=== PATIENT | male | born 1975 | race African-American/Black ===

== ENCOUNTER 2020-12-13 08:42 | Outpatient (REF) | payer MEDICARE, MEDICAID, SELFPAY ==
--- NOTE | ~2020-12-13 | XR_ITS ---
EXAMINATION: LEFT ELBOW, LEFT SHOULDER AND CERVICAL SPINE. CLINICAL INFORMATION: Pain. COMPARISON: None TECHNIQUE: 3 views left elbow. 4 views left shoulder. 5 views cervical spine. FINDINGS: LEFT ELBOW: There is no visible acute fracture, dislocation or subluxation seen. The soft tissues are normal. LEFT SHOULDER: There is mild reduction of the glenohumeral joint space and left AC joint space. No bony erosive changes seen. There is inferior acromial spurring. The soft tissues are normal. CERVICAL SPINE: There is mild straightening of cervical lordosis. Mild loss of C6-C7 disc height is noted. Rest the disc heights are normal. No visible acute fracture, dislocation or lytic process seen. There is mild ventral spondylosis. Mild bilateral narrowing of neural foramina from uncovertebral hypertrophic changes bilaterally at C6-C7 disc levels is noted slightly greater on the left. XR/XR cervical spine 4V IMPRESSION: Unremarkable left elbow exam. Mild degenerative spurring inferior left AC joint and inferior acromion. Mild degenerative changes C6-C7 disc level with mild ventral spondylosis at C4-C5, C5-C6 and C6-C7 disc levels.
--- NOTE | ~2020-12-13 | XR_ITS ---
EXAMINATION: LEFT ELBOW, LEFT SHOULDER AND CERVICAL SPINE. CLINICAL INFORMATION: Pain. COMPARISON: None TECHNIQUE: 3 views left elbow. 4 views left shoulder. 5 views cervical spine. FINDINGS: LEFT ELBOW: There is no visible acute fracture, dislocation or subluxation seen. The soft tissues are normal. LEFT SHOULDER: There is mild reduction of the glenohumeral joint space and left AC joint space. No bony erosive changes seen. There is inferior acromial spurring. The soft tissues are normal. CERVICAL SPINE: There is mild straightening of cervical lordosis. Mild loss of C6-C7 disc height is noted. Rest the disc heights are normal. No visible acute fracture, dislocation or lytic process seen. There is mild ventral spondylosis. Mild bilateral narrowing of neural foramina from uncovertebral hypertrophic changes bilaterally at C6-C7 disc levels is noted slightly greater on the left. XR/XR elbow LT 2V IMPRESSION: Unremarkable left elbow exam. Mild degenerative spurring inferior left AC joint and inferior acromion. Mild degenerative changes C6-C7 disc level with mild ventral spondylosis at C4-C5, C5-C6 and C6-C7 disc levels.
--- NOTE | ~2020-12-13 | XR_ITS ---
EXAMINATION: LEFT ELBOW, LEFT SHOULDER AND CERVICAL SPINE. CLINICAL INFORMATION: Pain. COMPARISON: None TECHNIQUE: 3 views left elbow. 4 views left shoulder. 5 views cervical spine. FINDINGS: LEFT ELBOW: There is no visible acute fracture, dislocation or subluxation seen. The soft tissues are normal. LEFT SHOULDER: There is mild reduction of the glenohumeral joint space and left AC joint space. No bony erosive changes seen. There is inferior acromial spurring. The soft tissues are normal. CERVICAL SPINE: There is mild straightening of cervical lordosis. Mild loss of C6-C7 disc height is noted. Rest the disc heights are normal. No visible acute fracture, dislocation or lytic process seen. There is mild ventral spondylosis. Mild bilateral narrowing of neural foramina from uncovertebral hypertrophic changes bilaterally at C6-C7 disc levels is noted slightly greater on the left. XR/XR shoulder LT min 2V IMPRESSION: Unremarkable left elbow exam. Mild degenerative spurring inferior left AC joint and inferior acromion. Mild degenerative changes C6-C7 disc level with mild ventral spondylosis at C4-C5, C5-C6 and C6-C7 disc levels.
== END 2020-12-13 08:43 | disposition home or self-care (01) ==
LOC: HO.XRAY 08:42
PROVIDERS: PCP Internal Medicine; Visit Provider Internal Medicine
DX: M54.12 Radiculopathy, cervical region (principal); M79.602 Pain in left arm
CPT/HCPCS: 72050; 73030; 73070

== ENCOUNTER 2023-09-18 09:44 | Outpatient (REF) | payer MEDICARE, SELFPAY ==
[2023-09-18 13:04] LABS: Alanine Aminotransferase 19 U/L (0-40); Albumin Level 4.1 g/dL (3.5-5.0); Alkaline Phosphatase 77 U/L (39-117); Anion Gap 12 (12-20); Aspartate Amino Transferase 17 U/L (5-37); Bilirubin Total 0.4 mg/dL (0.0-1.0); Blood Urea Nitrogen 15 mg/dL (9-16); Calcium 9.7 mg/dL (8.4-10.2); Carbon Dioxide 28 mmol/L (22-29); Chloride 108 mmol/L (96-108); Estimated Glomerular Filt Rate 58; Glucose Random 131 mg/dL (60-115); Potassium 4.7 mmol/L (3.3-5.1); Sodium 143 mmol/L (135-145); Total Protein 8.6 g/dL (6.5-8.0)
== END 2023-09-18 09:45 | disposition home or self-care (01) ==
LOC: HO.HHCL 09:44
PROVIDERS: Visit Provider Internal Medicine
DX: E11.65 Type 2 diabetes mellitus with hyperglycemia (principal); E78.00 Pure hypercholesterolemia, unspecified; B35.1 Tinea unguium
CPT/HCPCS: 36415; 80053; 80061; 80076; 82248; 82306

== ENCOUNTER 2023-12-11 09:49 | Outpatient (AMB) | payer MEDICARE, SELFPAY ==
--- NOTE | 2023-12-11 10:06 | A.OFFVIS_ITS ---
Intake Vital Signs 12/11/23 10:10 Height 5 ft 11 in Weight 288 lb BMI 40.2 BP 140/71 H Blood Pressure Location Lt brachial Position Sitting Pulse 67 Intake Visit Reasons: Colonoscopy screening Intake Note: Patient new consult for 1st pre colonoscopy screening. Patient cc: blood stool on and off/hemorrhoids ?? and acid reflex, patient denies any other GI issues. 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 Occasional acid reflux-at night- he snacks- tums once and a while- His father 2 years ago from GI issue- he is unsure - but very concerned - about his own health Bowels are normal- Appetite is good No cardiac or respiratory Diabetes sugars fluctuate No nausea, vomiting hematemesis, hematochezia fever chills PFSH Family History Father Intestinal angina Mother Breast CA Social History (Updated 12/11/23 @ 10:24 by Christine Farris PA-C) Household Members: Family Alcohol intake: current Alcohol intake frequency: holidays/special occasions only Patient Tobacco Use Status: Never used Tobacco Current occupational status: unemployed Review of Systems Const All systems reviewed & are unremarkable except as noted in HPI and below Card Denies chest pain and Denies dyspnea Resp Denies dyspnea GI Reports hematochezia and Reports heartburn Physical Exam Vital Signs: Last Vital Signs Pulse 67 12/11/23 10:10 BP 140/71 H 12/11/23 10:10 BMI result Body Mass Index 40.2 Const General: cooperative, healthy appearing and comfortable Orientation/consciousness: patient oriented x3 Limitations: language barrier Resp Effort & Inspection: normal respiratory effort and able to speak in complete sen tences Auscultation: clear to auscultation bilaterally, no rales, no rhonchi and no wheezes Cardio Rate: regular rate Rhythm: regular rhythm Heart sounds: S1 normal heart sound present and S2 normal heart sound present GI Palpation (GI): Soft to palpation and nontender Auscultation: normal bowel sounds Neuro General: patient oriented x3 Extrem General: Yes full ROM Psych Mental Status: mental status grossly normal Speech and movement: Clear speech present Affect: Anxious affect present Attitude: cooperative Thought process: Normal thought process present Thought content: Normal thought content present Assessment & Plan Assessment & Plan (1) Rectal bleeding: Comment: intermit- BRBPR- wiping- MLC hemorrhoids Discussed procedure, rare risks, need for escorted due to anesthesia Code(s): K62.5 - Hemorrhage of anus and rectum Plan: Avoid straining, maintain high-fiber diet (2) Acid reflux: Comment: r/o PUD-non ulcer dyspepsia- other endoscopic Code(s): K21.9 - Gastro-esophageal reflux disease without esophagitis Plan: ppi Reflux precautions EGD (3) Diabetes: Code(s): E11.9 - Type 2 diabetes mellitus without complications Plan: Omit metformin day before procedures no diabetes medication morning of procedure Plan EGD/ colon MG prep omit metformin day before as well as day of procedure Orders: Orders EGD/[place] Combo - GI Use Only 12/11/23 E11.9 - Type 2 diabetes mellitus without complications, K21.9 - Gastro-esophageal reflux disease without esophagitis, K62.5 - Hemorrhage of anus and rectum Medications: New polyethylene glycol 3350 (Miralax) Take as directed by mouth the day before your procedure. 238 grams PO ONCE PRN 238 grams 0RF laxative effect 1 day bisacodyl (Dulcolax (bisacodyl)) Day before procedure @ 12 noon Take 4 tablets by mouth followed by large glass of water 20 mg (4 x 5 mg) PO ONCE PRN 4 tabs 0RF colonoscopy prep 1 day Z12.11 - Encounter for screening for malignant neoplasm of colon omeprazole 20 mg PO DAILY 30 caps 5RF 30 days Patient Instructions: EGD/ colon MG prep, reviewed literature omit metformin day before as well as day of procedure Maintain high-fiber diet Avoid straining with hemorrhoid Reflux precautions Omeprazole 20 mg daily Coding Level of Care Code New Pt Level 3 (51017) Diagnoses Rectal bleeding K62.5 Acid reflux K21.9 Diabetes E11.9 Time Spent (min) 30 Comment [id number]
[2023-12-11 10:10] VITALS: BP 140/71; PULSE 67; BMI 40.2
== END 2023-12-11 11:05 | disposition home or self-care (01) ==
PROVIDERS: PCP Internal Medicine; Visit Provider Physician Assistant
DX: K62.5 Hemorrhage of anus and rectum (principal); K21.9 Gastro-esophageal reflux disease without esophagitis; E11.9 Type 2 diabetes mellitus without complications
CPT/HCPCS: 99203

== ENCOUNTER → 2023-12-11 09:49 | Outpatient (BNVA) | payer MEDICARE, SELFPAY | PROVIDERS: PCP Internal Medicine; Visit Provider Physician Assistant | DX: K62.5 Hemorrhage of anus and rectum (principal); K21.9 Gastro-esophageal reflux disease without esophagitis; E11.9 Type 2 diabetes mellitus without complications; Z79.84 Long term (current) use of oral hypoglycemic drugs | CPT/HCPCS: 99202 ==

== ENCOUNTER 2024-01-22 09:40 | Outpatient (REF) | payer MEDICARE, SELFPAY ==
[2024-01-22 12:15] LABS: Alanine Aminotransferase 23 U/L (0-40); Albumin Level 3.9 g/dL (3.5-5.0); Alkaline Phosphatase 88 U/L (39-117); Aspartate Amino Transferase 15 U/L (5-37); Bilirubin Direct 0.1 mg/dL (0.0-0.5); Bilirubin Total 0.3 mg/dL (0.0-1.0); Cholesterol 141 mg/dL (<200); HDL Cholesterol 33 mg/dL (>40); LDL Cholesterol Calculated 86 mg/dL (<100); Total Protein 8.3 g/dL (6.5-8.0); Triglycerides 114 mg/dL (<150)
[2024-01-22 12:35] LABS: Reflex LDLD? No
== END 2024-01-22 09:41 | disposition home or self-care (01) ==
LOC: HO.HHCL 09:40
PROVIDERS: Visit Provider Internal Medicine
DX: E78.2 Mixed hyperlipidemia (principal)
CPT/HCPCS: 36415; 80061; 80076

== ENCOUNTER 2024-04-08 08:49 | Day surgery (SDC) | payer MEDICARE, SELFPAY ==
[2024-04-06 12:43] VITALS: BMI 40.2
[2024-04-08 09:11] VITALS: BMI 40.9
--- NOTE | 2024-04-08 09:26 | P.CONAN_ITS ---
[facility] Active Problems Active Problems: All Active Problems Diabetes (Acute) Acid reflux (Acute) Rectal bleeding (Acute) Past Medical History Medical History Hemorrhoids GERD (gastroesophageal reflux disease) Diabetes Family History Family History Father Intestinal angina Mother Breast CA Surgical History Surgical History Surgical history unknown History of Problems with Anesthesia: No Social History Social History Household Members: Family Alcohol intake: current Alcohol intake frequency: holidays/special occasions only Patient Tobacco Use Status: Never used Tobacco Use of substances other than those prescribed or required for medical reasons: No Are you DNR?: No Advance Directives: No Advance Directives Information Provided: Yes Advance Directives on File: No Current occupational status: unemployed Meds Allergies Allergy/AdvReac Type Severity Reaction Status Date / Time aspirin Allergy Severe Swelling Verified 12/11/23 10:05 Home Medications ?Medication ?Instructions ?Recorded ?Confirmed ?Last Taken ?Type atorvastatin 10 mg tablet 10 mg PO DAILY 12/11/23 04/06/24 Unknown History metformin 850 mg tablet 850 mg PO DAILY 12/11/23 04/06/24 Unknown History Exam Height,Weight and Vital Signs: Height 5 ft 11 in Weight 132.903 kg Airway Mallampati Class: IV TM Dist: >3cm Neck ROM: Full Loose/Missing/Broken Teeth: Yes and Lower Heart: RRR Lungs: CTA Assessment and Plan Assessment Anesthesia Assessment: Anesthesia Plan Discussed Final Anesthetic Review History of Problems with Anesthesia: No NPO: Yes ASA Class: III Final Preanesthetic Review: Meds/Allgs Chart Reviewed, Consent Obtained/Reviewed and Anes Risks/Benef Reviewed Patient Risk: Intermediate Procedure Risk: Intermediate Anesthetic Plan Anesthetic Plan: MAC: Disposition: Standard PACU
[2024-04-08 09:30] VITALS: BP 165/94; PULSE 81; RESP 18; TEMP 36.7; O2SAT 95
[2024-04-08 09:33] LABS: Glucose, Whole Blood 128 mg/dL (60-115)
[2024-04-08] MEDS: Lactated Ringers 1,000 ML 100 ML IVCONT (09:39)
--- NOTE | 2024-04-08 09:39 | MHC.SHP ---
Pre-Procedural Eval Section A - 24 Hr Update-Section A only Date of Service: 04/08/24 Section B - Complete if H&P > 30 days Chief Complaint: rectal bleed,gerd, Relevant Family History (Specify if Yes): No Relevant Social History: None Present Medications: see Short Stay Collaborative assessment Medical History: Significant History (DM, high chol ) History of Previous Operations: No relevant previous surgery Allergies: Allergies Allergy/AdvReac Type Severity Reaction Status Date / Time aspirin Allergy Severe Swelling Verified 12/11/23 10:05 Review of Systems Sugical H&P ROS: Negative: Constitution, Cardiovascular, Respiratory, Neurological, Psychiatric, Hem-Onc, Allergic/Immunologic, Gastrointestinal, Genitourinary, Musculoskeletal, Integumentary, Endocrine and Eyes/Ears/Nose/Throat Exam Surgical H&P Exam: Normal: HEENT, Normal: Heart, Normal: Lungs, Normal: Extremities, Normal: Abdomen, Normal: Skin and Normal: Neurological Plan Diagnosis/Plan: Unchanged I have reviewed the history and physical and performed a pertinent physical examination on my patient. No changes have occurred unless specified. Time Spent With Patient Time: Total time managing care of this patient today ____ minutes.
--- NOTE | 2024-04-08 09:40 | P.OPN-COLO_ITS ---
Colonoscopy Operative Note Operative Note Date of Service: 04/08/24 Narrative: Operative Information Procedure Description: EGD, Colonoscopy Indication: GERD, rectal bleeding Anesthesia: MAC FLEXIBLE TRANSORAL UPPER GASTROINTESTINAL ENDOSCOPY AND COLONOSCOPY PROCEDURE NOTE UPPER ENDOSCOPY Consent: Indications for the procedure and potential complications of bleeding, perforation, reaction to medications and missed diagnosis were discussed with the patient and informed consent was obtained. Instrument: Olympus GIF H 190 J mid size upper endoscope Monitoring: Vital signs and clinical assessment, continuous EKG monitoring, Pulse oximetry, Carbon Dioxide monitoring and blood pressure monitoring were done throughout the procedure. Procedure: The patient was placed in the left lateral decubitis position and pre-procedure medications were administered and a bite block was placed. The endoscope was inserted into the mouth and advanced under direct vision to the third part of duodenum. A careful inspection was made as the upper endoscope was withdrawn including a retroflexed examination of the proximal stomach; Findings and interventions are described below. Findings: Larynx:normal Esophagus: GE junction at 36 cm, diaphragm hiatus at 39 cm, consistent with 3 cm sliding hiatal hernia with schatzki ring and erythema and edema at GEJ consistent with esophagitis, bx taken from GEJ, distal and proximal esophagus Stomach: mild erythema. Biopsies were obtained. Grade 2 flap valve on retroflexed examination of the cardia. Duodenum: Normal bulb and descending duodenum, Intervention: Biopsies as noted above, COLONOSCOPY Instrument: Olympus variable stiffness ADULT scope 190L Colonoscopy Monitoring: Vital signs and clinical assessment, continuous EKG monitoring, Pulse oximetry, Carbon Dioxide monitoring and blood pressure monitoring were done throughout the procedure. Colon withdrawal time was 10 minutes. Procedure: The patient was placed in the left lateral decubitis position and pre-procedure medications were administered. After a digital rectal examination of the ano-rectum, the video colonoscope was inserted into the rectum and advanced through the colon to the cecum/TI. The colonoscope was slowly withdrawn in a retrograde panoramic fashion and the colon mucosa was carefully examined including a retroflexed view of the rectum. Findings and interventions are described below. Procedure Difficulty:moderate Findings: Terminal Ileum-normal Cecum:normal right sided retroflexion- normal Ascending Colon: normal Transverse Colon -normal Descending Colon:normal Sigmoid Colon: normal Rectum: Retroflexion with small internal hemorrhoids, grade I Anorectum - normal Colon preparation: [place] Bowel Preparation Scale Right colon; 3 Transverse colon: 2 Left colon; 2 (0 = Unprepared colon segment with mucosa not seen due to solid stool that cannot be cleared. 1 = Portion of mucosa of the colon segment seen, but other areas of the colon segment not well seen due to staining, residual stool and/or opaque liquid. 2 = Minor amount of residual staining, small fragments of stool and/or opaque liquid, but mucosa of colon segment seen well. 3 = Entire mucosa of colon segment seen well with no residual staining, small fragments of stool or opaque liquid) Impression and Post Procedure Diagnosis: Endoscopy Findings: esophagitis hiatal hernia gastritis schatzki ring Colonoscopy Findings: internal hemorrhoids Plan: Await Pathology results Repeat Colonoscopy in 10 years or earlier if clinically indicated High fiber diet leaflet avoid straining at stool, epsom salts and sitz bath, anusol supps or cream check ppi compliance consider increasing dose Above findings were reviewed with the patient and relevant handouts were provided if indicated.
[2024-04-08 10:20] VITALS: BP 104/64; PULSE 86; RESP 18; TEMP 36.4; O2SAT 94
[2024-04-08 10:35] VITALS: BP 134/79; PULSE 85; RESP 18; TEMP 36.4; O2SAT 94
== END 2024-04-08 11:32 | disposition home or self-care (01) ==
PROVIDERS: PCP Internal Medicine; Visit Provider Internal Medicine Gastroenterology
PROC: (CPT 45378; principal; 2024-04-08 11:40)
DX: K62.5 Hemorrhage of anus and rectum (principal); K64.0 First degree hemorrhoids; K21.9 Gastro-esophageal reflux disease without esophagitis; K29.60 Other gastritis without bleeding; B96.81 Helicobacter pylori [H. pylori] as the cause of diseases classified elsewhere; K22.2 Esophageal obstruction; K44.9 Diaphragmatic hernia without obstruction or gangrene; K20.90 Esophagitis, unspecified without bleeding; E11.9 Type 2 diabetes mellitus without complications; Z79.84 Long term (current) use of oral hypoglycemic drugs; Z79.899 Other long term (current) drug therapy; Z88.8 Allergy status to other drugs, medicaments and biological substances; Z56.0 Unemployment, unspecified
CPT/HCPCS: 45378; 43239; 82947; 88305; 88313; 88342; J2704

== ENCOUNTER → 2024-04-08 08:49 | Outpatient (BNV) | payer MEDICARE, SELFPAY | PROVIDERS: PCP Internal Medicine; Visit Provider Internal Medicine Gastroenterology | DX: K21.00 Gastro-esophageal reflux disease with esophagitis, without bleeding (principal); K22.2 Esophageal obstruction; K29.70 Gastritis, unspecified, without bleeding; K62.5 Hemorrhage of anus and rectum; K64.0 First degree hemorrhoids | CPT/HCPCS: 43239; 45378 ==

== ENCOUNTER 2024-07-16 09:46 | Outpatient (AMB) | payer MEDICARE, SELFPAY ==
--- NOTE | 2024-07-16 10:01 | AM.OFFVISNUR ---
Intake Visit Reasons: H-pylori / re-check Intake Note: Patient presents for collection of H Pylori breath test. Patient has been fasting for 1 hour (nothing to eat, drink, no chewing gum or smoking) has not taken any antacid medication for at least 2 weeks and has no allergies to artificial sweeteners.?? Allergies aspirin Allergy (Severe, Verified 07/16/24 10:09) Swelling Assessment & Plan Assessment & Plan (1) Acid reflux: Comment: r/o PUD-non ulcer dyspepsia- other endoscopic Code(s): K21.9 - Gastro-esophageal reflux disease without esophagitis Category: Medical (2) Rectal bleeding: Comment: intermit- BRBPR- wiping- MLC hemorrhoids Discussed procedure, rare risks, need for escorted due to anesthesia Code(s): K62.5 - Hemorrhage of anus and rectum Category: Medical Plan Patient presents for collection of H Pylori breath test. Patient has been fasting for 1 hour (nothing to eat, drink, no chewing gum or smoking) has not taken any antacid medication for at least 2 weeks and has no allergies to artificial sweeteners.???This test checks for an overgrowth of bacteria in your stomach. We all have bacteria but some may have more than others. It is treatable. if the test comes back negative there is nothing else to do. If the test result is positive we will treat you with 2 antibiotics and a medication to decrease the acid in your stomach (PPI) for 2 weeks. Two weeks after you have completed the treatment we will retest you to make sure the overgrowth has resolved. Medications: Discontinued amoxicillin Discontinued Reason: Patient Completed Course 1,000 mg (2 x 500 mg) PO BID 2 weeks 56 caps 0RF Patient Instructions: Process for specimen collection and reason for testing was explained to the patient. Specimen collection. Patient instructed to take a deep breath and then exhale into the blue bag, filling it up as much as possible. Patient instructed to drink a mixture of water and the artificial sweetener with a straw. A 15 minute wait period was observed. Patient instructed to take a deep breath and then exhale into the pink bag, filling it up as much as possible.??
== END 2024-07-16 10:13 | disposition home or self-care (01) ==
LOC: HO.HGI 09:47
PROVIDERS: PCP Internal Medicine; Visit Provider Internal Medicine Gastroenterology
DX: K21.9 Gastro-esophageal reflux disease without esophagitis (principal); K62.5 Hemorrhage of anus and rectum

== ENCOUNTER 2024-07-16 09:46 | Outpatient (REF) | payer MEDICARE, SELFPAY ==
[2024-07-17 15:10] LABS: H Pylori Breath Test Negative (Negative)
== END 2024-07-16 09:47 | disposition home or self-care (01) ==
LOC: HO.LAB 09:46
PROVIDERS: PCP Internal Medicine; Visit Provider Internal Medicine Gastroenterology
DX: K21.9 Gastro-esophageal reflux disease without esophagitis (principal); K62.5 Hemorrhage of anus and rectum; Z11.2 Encounter for screening for other bacterial diseases
CPT/HCPCS: 83013; 99211

== ENCOUNTER 2024-12-04 09:02 | Outpatient (REF) | payer MEDICARE, SELFPAY ==
[2024-12-04 11:42] LABS: Alanine Aminotransferase 33 U/L (0-40); Albumin Level 3.8 g/dL (3.5-5.0); Alkaline Phosphatase 112 U/L (39-117); Anion Gap 10 (12-20); Aspartate Amino Transferase 29 U/L (5-37); Bilirubin Total 0.5 mg/dL (0.0-1.0); Blood Urea Nitrogen 16 mg/dL (9-16); Calcium 9.1 mg/dL (8.4-10.2); Carbon Dioxide 28 mmol/L (22-29); Chloride 108 mmol/L (96-108); Cholesterol 171 mg/dL (<200); Estimated Glomerular Filt Rate > 60; Glucose Random 136 mg/dL (60-115); HDL Cholesterol 34 mg/dL (>40); LDL Cholesterol Calculated 112 mg/dL (<100); Potassium 4.1 mmol/L (3.3-5.1); Sodium 142 mmol/L (135-145); Total Protein 8.2 g/dL (6.5-8.0); Triglycerides 129 mg/dL (<150)
[2024-12-04 12:25] LABS: Reflex LDLD? No
[2024-12-04 12:30] LABS: Creatinine Urine 76.45 mg/dL; Microalbum/Creatinine Ratio Ur 196.2 ug/mg cr (<30)
== END 2024-12-04 09:03 | disposition home or self-care (01) ==
LOC: HO.HHCL 09:02
PROVIDERS: Visit Provider Internal Medicine
DX: E11.65 Type 2 diabetes mellitus with hyperglycemia (principal)
CPT/HCPCS: 36415; 80053; 80061; 82043; 82570